=== PATIENT | male | born 1970 | race American Indian/Alaskan Native ===

== ENCOUNTER 2018-09-09 09:31 | Emergency (ER) | payer OTHER ==
[2018-09-09] MEDS ORDERED: TORADOL IV ONE (11:56)
[2018-09-09] MEDS ORDERED: NORCO 5/325 PO ONE (11:56)
--- NOTE | 2018-09-09 11:57 | Emergency Department Report ---
ED Extremity Problem HPI - General Chief complaint: Extremity Injury, Lower Stated complaint: (R) HIP PAIN Source: patient Mode of arrival: Ambulatory Limitations: No Limitations - History of Present Illness Initial comments: 48M PMH none p/w c/o right hip pain x4 days. Patient is awake alert and oriented 3 fully lucid states that he feels tightness near the top of his right hip and aching of the top of his right hip. Denies any direct trauma or falls. Denies any rash overlying hip or flank. Denies fevers or chills. Patient denies alcohol smoking or other drug use. 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 MD Complaint: extremity pain Onset/Timin -: days(s) Location: right, lower extremity, other (hip) History of Same: No Severity scale (0 -10): 8 Quality: aching Consistency: intermittent Improves with: nothing, cold therapy, immobilization Worsens with: nothing, exertion - Related Data Previous Rx's Medication Instructions Recorded Last Taken Type Cyclobenzaprine [Flexeril] 10 mg PO TID PRN #10 tablet 09/09/18 Unknown Rx Ibuprofen [Motrin] 600 mg PO Q8H PRN #21 tablet 09/09/18 Unknown Rx Allergies Allergy/AdvReac Type Severity Reaction Status Date / Time No Known Allergies Allergy Unverified 09/09/18 09:34 ED Review of Systems ROS: Stated complaint: (R) HIP PAIN Other details as noted in HPI Constitutional: denies: chills, fever Eyes: denies: eye pain, eye discharge, vision change ENT: denies: ear pain, throat pain Respiratory: denies: cough, shortness of breath, wheezing Cardiovascular: denies: chest pain, palpitations Endocrine: no symptoms reported Gastrointestinal: denies: abdominal pain, nausea, diarrhea Genitourinary: denies: urgency, dysuria Musculoskeletal: as per HPI, arthralgia. denies: back pain, joint swelling Skin: denies: rash, lesions Neurological: denies: headache, weakness, paresthesias Psychiatric: denies: anxiety, depression Hematological/Lymphatic: denies: easy bleeding, easy bruising ED Past Medical Hx - Past Medical History Previous Medical History?: No - Surgical History Past Surgical History?: No - Medications Home Medications: Home Medications Medication Instructions Recorded Confirmed Last Taken Type Cyclobenzaprine [Flexeril] 10 mg PO TID PRN #10 tablet 09/09/18 Unknown Rx Ibuprofen [Motrin] 600 mg PO Q8H PRN #21 tablet 09/09/18 Unknown Rx ED Physical Exam - General Limitations: No Limitations General appearance: alert, in no apparent distress - Head Head exam: Present: atraumatic, normocephalic - Eye Eye exam: Present: normal appearance - ENT ENT exam: Present: mucous membranes moist - Neck Neck exam: Present: normal inspection - Respiratory Respiratory exam: Present: normal lung sounds bilaterally. Absent: respiratory distress - Cardiovascular Cardiovascular Exam: Present: regular rate, normal rhythm. Absent: systolic murmur, diastolic murmur, rubs, gallop - GI/Abdominal GI/Abdominal exam: Present: soft, normal bowel sounds - Rectal Rectal exam: Present: deferred - Extremities Exam Extremities exam: Present: normal inspection, full ROM, other (distal range of motion right lower extremity clinically intact. Range of motion right hip abduction and adduction internal and external rotation and flexion and extension clinically intact. Range of motion knee and ankle clinically intact. Distal dorsalis pedis and popliteal posterior tibial pulses strong to palpation. Distal sensation intact) - Back Exam Back exam: Present: normal inspection, full ROM - Neurological Exam Neurological exam: Present: alert, oriented X3, CN II-XII intact, normal gait - Psychiatric Psychiatric exam: Present: normal affect, normal mood - Skin Skin exam: Present: warm, dry, intact, normal color. Absent: rash ED Course Vital Signs 09/09/18 09/09/18 09/09/18 09:56 12:05 12:06 Temperature 100.2 F H Pulse Rate 92 H Respiratory 18 18 18 Rate Blood Pressure 127/84 [Right] O2 Sat by Pulse 98 Oximetry 09/09/18 14:17 Temperature Pulse Rate 80 Respiratory 18 Rate Blood Pressure 134/87 [Right] O2 Sat by Pulse 97 Oximetry ED Medical Decision Making - Lab Data Result diagrams: 09/09/18 11:58 09/09/18 11:58 - Medical Decision Making A/P: Right hip pain 1-pain is 1 out of 10 upon reassessment. Range of motion right hip flexion- extension internal and external rotation and abduction and abduction is fully intact no clinical signs of septic joint on exam 2-labs were unremarkable 3-NSAIDs and muscle relaxants when necessary 4-follow-up with primary care 5- patient advised to return to the ED for inability to range his right hip. No clinical signs of cauda equina on exam Critical care attestation.: If time is entered above; I have spent that time in minutes in the direct care of this critically ill patient, excluding procedure time. ED Disposition Clinical Impression: Right hip pain Disposition: TO HOME OR SELFCARE Is pt being admited?: No Does the pt Need Aspirin: No Condition: Stable Instructions: Musculoskeletal Pain (ED), Arthralgia (ED) Prescriptions: Cyclobenzaprine [Flexeril] 10 mg PO TID PRN #10 tablet PRN Reason: Muscle Spasm Ibuprofen [Motrin] 600 mg PO Q8H PRN #21 tablet PRN Reason: Pain Referrals: MARION CLINE MD [Primary Care Provider] - 3-5 Days [facility] [Provider Group] - 3-5 Days Forms: Accompanied Note, Work/School Release Form(ED) Time of Disposition: 14:23
[2018-09-09 12:09] LABS: Basophils # (Auto) 0.1 K/mm3 (0.0-0.1); Basophils % (Auto) 0.8 % (0.0-1.8); Eosinophils # (Auto) 0.1 K/mm3 (0.0-0.4); Eosinophils % (Auto) 1.1 % (0.0-4.3); Hematocrit 39.1 % (35.5-45.6); Hemoglobin 13.4 gm/dl (11.8-15.2); Lymphocytes % (Auto) 24.8 % (13.4-35.0); Mean Corpuscular HGB Conc 34 % (32-34); Mean Corpuscular Volume 95 fl (84-94); Monocytes % (Auto) 12.1 % (0.0-7.3); Platelet Count 209 K/mm3 (140-440); Red Blood Count 4.12 M/mm3 (3.65-5.03); Red Cell Distribution Width 13.1 % (13.2-15.2)
[2018-09-09 12:32] LABS: Alanine Aminotransferase 10 units/L (7-56); Albumin 4.5 g/dL (3.9-5); BUN/Creatinine Ratio 24; Blood Urea Nitrogen 17 mg/dL (9-20); Calcium 9.4 mg/dL (8.4-10.2); Hemolysis Index 3; Uric Acid 5.2 mg/dL (3.5-7.6)
[2018-09-09 12:35] LABS: Erythrocyte Sedimentation Rate 19 mm/Hr (0-20)
--- NOTE | 2018-09-09 13:56 | XRay Report ---
RIGHT HIP, 2 views: History: Right hip pain. Normal bone mineralization. No evidence for fracture, dislocation or bone lesion. No significant degenerative changes are identified. The right acetabulum appears slightly hypoplastic. IMPRESSION: No evidence for acute injury. 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
[2018-09-09 14:17] VITALS: BP 134/87
== END 2018-09-09 14:33 | disposition home or self-care (01) ==
LOC: ED 09:31
DX: M25.551 Pain in right hip (principal)
CPT/HCPCS: 36415; 73502; 80053; 84550; 85025; 85652; 86140; 96374; 99284; J1885